=== PATIENT | male | born 1975 | race Caucasian/White ===

== ENCOUNTER → 2018-10-31 | Outpatient (CLI) | payer OTHER ==
[2018-10-31 17:15] LABS: ALANINE AMINOTRANSFERASE 81 U/L (21-72); ALBUMIN 4.6 g/dL (3.5-5.0); ALKALINE PHOSPHATASE 60 U/L (38-126); ANION GAP 15 (5-19); ASPARTATE AMINO TRANSFERASE 47 U/L (17-59); BILIRUBIN,DIRECT 0.4 mg/dL (0.0-0.4); BILIRUBIN,TOTAL 0.9 mg/dL (0.2-1.3); BLOOD UREA NITROGEN 21 mg/dL (7-20); CALCIUM 9.7 mg/dL (8.4-10.2); CARBON DIOXIDE 28 mmol/L (22-30); CHLORIDE 99 mmol/L (98-107); GLUCOSE 129 mg/dL (75-110); POTASSIUM 3.7 mmol/L (3.6-5.0); SODIUM 141.5 mmol/L (137-145); TOTAL PROTEIN 7.5 g/dL (6.3-8.2)
[2018-11-03 07:16] LABS: TESTOSTERONE FREE (DIRECT) 28.2 pg/mL (6.8-21.5)
== END ==
LOC: OD 15:41
PROVIDERS: ATTEND Physician Assistant
DX: E29.1 Testicular hypofunction (principal); D35.2 Benign neoplasm of pituitary gland; E16.2 Hypoglycemia, unspecified
CPT/HCPCS: 36415; 80053; 82024; 83001; 83002; 84146; 84305; 84402; 84403; 84443

== ENCOUNTER 2019-06-26 07:49 | Day surgery (SDC) | payer OTHER ==
[~2019-06-26 07:49] MED LIST: CEFAZOLIN SODIUM 2 GM in DEXTROSE 5%-WATER 100 ML IV PRN
[2019-06-26] MEDS ORDERED: PROMETHAZINE HCL INJ 25 MG/1 ML VIAL IV PRN ×2 (07:57)
[2019-06-26] MEDS ORDERED: FENTANYL CITRATE INJ/PF 100 MCG/2 ML AMPUL IV PRN ×3 (07:57)
[2019-06-26] MEDS ORDERED: MEPERIDINE HCL/PF INJ 25 MG/1 ML DISP.SYRIN IV PRN (07:57)
[2019-06-26] MEDS ORDERED: DIPHENHYDRAMINE HCL 50 MG/ML VIAL IV PRN (07:57)
[2019-06-26] MEDS ORDERED: MIDAZOLAM 2 MG/2 ML INJ ONE (08:07)
[2019-06-26] MEDS ORDERED: FENTANYL CITRATE INJ/PF 100 MCG/2 ML AMPUL ONE (08:07)
[2019-06-26] MEDS ORDERED: PROPOFOL INJ 200 MG/20 ML VIAL IV ONE (08:07)
[2019-06-26 08:54] LABS: ABSOLUTE EOSINOPHILS # (AUTO) 0.3 10^3/uL (0.0-0.6); ABSOLUTE LYMPHOCYTES (AUTO) 1.4 10^3/uL (0.5-4.7); ABSOLUTE MONOCYTES (AUTO) 0.5 10^3/uL (0.1-1.4); ABSOLUTE NEUT (AUTO) 2.9 10^3/uL (1.7-8.2); BASOPHILS % (AUTO) 0.1 % (0-2); HEMATOCRIT 42.4 % (37.9-51.0); HEMOGLOBIN 14.8 g/dL (13.5-17.0); LYMPHOCYTES % (AUTO) 27.7 % (13-45); MEAN CORPUSCULAR HEMOGLOBIN 31.2 pg (27.0-33.4); MEAN CORPUSCULAR VOLUME 89 fl (80-97); MONOCYTES % (AUTO) 8.9 % (3-13); PLATELET COUNT 180 10^3/uL (150-450); RED BLOOD COUNT 4.76 10^6/uL (4.35-5.55); RED CELL DISTRIBUTION WIDTH 14.6 % (11.5-14.0); SEGMENTED NEUTROPHILS % (AUTO) 57.3 % (42-78); TOTAL CELLS COUNTED % (AUTO) 100 %; WHITE BLOOD COUNT 5.1 10^3/uL (4.0-10.5)
[2019-06-26] MEDS ORDERED: LIDOCAINE 0.5% INJ-PF (5 MG/ML) 50 ML SDV ONE (08:59)
[2019-06-26 09:10] LABS: ANION GAP 8 (5-19); BLOOD UREA NITROGEN 16 mg/dL (7-20); CALCIUM 9.4 mg/dL (8.4-10.2); CARBON DIOXIDE 28 mmol/L (22-30); CHLORIDE 103 mmol/L (98-107); GLUCOSE 97 mg/dL (75-110); POTASSIUM 3.9 mmol/L (3.6-5.0)
[2019-06-26] MEDS ORDERED: BUPIVACAINE HCL 0.5 % INJ/PF 30 ML SDV ONE (09:52)
--- NOTE | 2019-06-26 10:11 | EKG REPORT ---
SEVERITY:- ABNORMAL ECG - SINUS RHYTHM FIRST DEGREE AV BLOCK LEFT VENTRICULAR HYPERTROPHY : Confirmed by: Shree Crawford 26-Jun-2019 10:10:34
--- NOTE | 2019-06-26 11:21 | Operative Report ---
Operative Report DATE OF SURGERY: 06/26/19 PREOPERATIVE DIAGNOSIS: Left carpal tunnel syndrome POSTOPERATIVE DIAGNOSIS: Same OPERATION: Left mini open carpal tunnel release SURGEON: LEIDY SMITH ANESTHESIA: IV-Regional COMPLICATIONS: None ESTIMATED BLOOD LOSS: Minimal INTRAOPERATIVE FINDINGS: Left median nerve compression PROCEDURE: Indications for procedure: The patient is a 43-year-old man who has failed nonoperative treatment for left carpal tunnel syndrome including splinting and cortisone injection. Description of procedure: Following the induction of a [place] block anesthetic and administration of antibiotic, the patient was positioned supine on the operating room table. All bony prominences were padded. The left upper extremity was sterilely prepped with ChloraPrep. A 2 cm incision was made in the palm based distally on the maximally abducted thumb in the third fourth digital interspace. Sharp incision was performed through skin and blunt dissection was performed to until the transverse carpal ligament was visualized. The transverse carpal ligament was transected under 3.5 loupe magnification. As the proximal margin of the wrist crease was reached, the wrist was flexed and the palmar musculature retracted allowing transection of the proximal margin of the carpal ligament and forearm fascia under direct visualization. At the distal extent of the incision the superficial arch was identified and protected as the ligament was incised. At the conclusion of the procedure the motor branch of the median nerve and the superficial arch were both visualized. They were both completely released and intact. The wound was irrigated with normal saline. The skin was reapproximated with monofilament suture. Marcaine was injected into the wound for postoperative analgesia and a bulky sterile dressing was applied. The patient tolerated the procedure well without complication and was brought to the recovery room in stable condition.
[2019-06-26] MEDS ORDERED: OXYCODONE-ACETAMINOPHEN 5-325 MG TABLET PO PRN (12:09)
[2019-06-26] MEDS ORDERED: ONDANSETRON HCL INJ/PF 4 MG/2 ML SDV IV PRN (12:09)
[2019-06-26 13:05] VITALS: BP 139/90
== END 2019-06-26 13:05 | disposition home or self-care (01) ==
LOC: OROUT 07:49
PROVIDERS: ATTEND Orthopaedic Surgery
DX: G56.02 Carpal tunnel syndrome, left upper limb (principal); I10 Essential (primary) hypertension; E78.00 Pure hypercholesterolemia, unspecified
CPT/HCPCS: 36415; 85025; 80048; 93005; 93010; 01810; 64721; J2250; J3490 ×2; J0690; J3010; J7060; J2704; 1810

== ENCOUNTER → 2019-11-06 | Outpatient (CLI) | payer OTHER ==
[2019-11-06 12:43] LABS: HEMATOCRIT 43.9 % (37.9-51.0); HEMOGLOBIN 15.5 g/dL (13.5-17.0); MEAN CORPUSCULAR HEMOGLOBIN 31.5 pg (27.0-33.4); MEAN CORPUSCULAR HGB CONC 35.4 g/dL (32.0-36.0); MEAN CORPUSCULAR VOLUME 89 fl (80-97); PLATELET COUNT 215 10^3/uL (150-450); RED BLOOD COUNT 4.93 10^6/uL (4.35-5.55); RED CELL DISTRIBUTION WIDTH 14.4 % (11.5-14.0); WHITE BLOOD COUNT 7.5 10^3/uL (4.0-10.5)
[2019-11-06 13:36] LABS: FREE T4 (FREE THYROXINE) 0.88 ng/dL (0.78-2.19)
[2019-11-06 13:49] LABS: THYROID STIMULATING HORMONE 3.06 uIU/mL (0.47-4.68)
[2019-11-09 07:12] LABS: TESTOSTERONE FREE (DIRECT) 6.9 pg/mL (6.8-21.5)
== END ==
LOC: OD 11:54
PROVIDERS: ATTEND Physician Assistant
DX: R53.83 Other fatigue (principal); E29.1 Testicular hypofunction
CPT/HCPCS: 36415; 84402; 84403; 84439; 84443; 85027

== ENCOUNTER → 2019-12-18 | Outpatient (CLI) | payer OTHER ==
--- NOTE | 2019-12-18 17:41 | RADIOLOGY REPORT (SQ) ---
EXAM DESCRIPTION: DUPLEX ART/JARRED FLOW COMPLETE COMPLETED DATE/TIME: 12/18/2019 9:56 am REASON FOR STUDY: HTN/MATTHIAS I70.1 ATHEROSCLEROSIS OF RENAL ARTERY COMPARISON: None. TECHNIQUE: Realtime and static grayscale images acquired. Selected color Doppler, velocities and spe ctral images recorded. LIMITATIONS: None. FINDINGS: RIGHT KIDNEY: RENAL ARTERY VELOCITIES: 70 cm/sec. Segmental artery velocity 47 cm/sec. RENAL VEIN: Color doppler flow present, patent. VELOCITY RATIO: 0.7. Normal waveforms. KIDNEY: Normal size. No significant pathology. LEFT KIDNEY: RENAL ARTERY VELOCITIES: 143 cm/sec. Segmental artery velocity 76 cm/sec. RENAL VEIN: Color doppler flow present, patent. VELOCITY RATIO: 1.4. Normal waveforms. KIDNEY: Normal size. No significant pathology. BLADDER: Normal. OTHER: No other significant finding. IMPRESSION: NO DOPPLER EVIDENCE OF HEMODYNAMICALLY SIGNIFICANT RENAL ARTERY STENOSIS. COMMENT: NORMAL RENAL ARTERY/AORTA VELOCITY RATIO IS LESS THAN OR EQUAL TO 3.5. TECHNICAL DOCUMENTATION: JOB ID: [id number] [employer]- All Rights Reserved Reading location - IP/workstation name: PRODUCT [email or web address]
== END ==
LOC: RAD 08:52
PROVIDERS: ATTEND Internal Medicine
DX: I70.1 Atherosclerosis of renal artery (principal)
CPT/HCPCS: 93975